=== PATIENT | female | born 1990 ===

== ENCOUNTER 2017-02-07 00:55 | Observation (INO) | payer OTHER ==
[2017-02-07] MEDS ORDERED: Sodium Chloride 0.9% 1,000 ML IV STA ×2 (01:27→05:10)
--- NOTE | 2017-02-07 01:27 | ED PDOC ---
Arrival/HPI - General Chief Complaint: Abdominal Pain Time Seen by Provider: 02/07/17 01:18 Historian: Patient - History of Present Illness Narrative History of Present Illness (Text): 02/07/17 01:24 Tracie Lopez is a 25 year old female, whose past medical history includes calcium deficiency, hypothyroidism, thyroid cancer, vocal cord paralysis, and anxiety, who presents to the emergency room complaining of nausea, diarrhea, and intermittent abdominal cramping for 1 week. Patient had been taking Clindamycin for hidradenitis suppurativa, which she stopped taking due to discomfort. Patient states she is still complaining of abdominal discomfort and was started on Flagyl and probiotics by her PMD. Patient denies any fever, chills, chest pain, shortness of breath, urinary symptoms, back pain, neck pain , headache, dizziness, or any other complaints. PMD: Dr. Wali Caal Time/Duration: Other (1 week) Symptom Onset: Gradual Symptom Course: Intermittent Quality: Cramping Activities at Onset: Rest, Light Context: Home Past Medical History - Provider Review Nursing Documentation Reviewed: Yes - Infectious Disease Hx of Infectious Diseases: None - Cardiac Hx Cardiac Disorders: No - Pulmonary Hx Respiratory Disorders: No - Neurological Hx Neurological Disorder: No - HEENT Hx HEENT Disorder: Yes (vocal cord paralysis) Other/Comment: thyroid nodule - Renal Hx Renal Disorder: No - Endocrine/Metabolic Hx Endocrine Disorders: Yes Hx Hypothyroidism: Yes Other/Comment: Thryroid nodule - Hematological/Oncological Hx Blood Disorders: No - Integumentary Hx Dermatological Disorder: Yes Other/Comment: SMALL CYST IN ARMPIT WITH ANTIBIOTICS - Musculoskeletal/Rheumatological Hx Musculoskeletal Disorders: No Hx Falls: No - Gastrointestinal Hx Gastrointestinal Disorders: No - Genitourinary/Gynecological Hx Genitourinary Disorders: No - Psychiatric Hx Psychophysiologic Disorder: Yes Hx Anxiety: Yes Hx Substance Use: No - Surgical History Hx Thyroidectomy: Yes - Anesthesia Hx Anesthesia: Yes Hx Anesthesia Reactions: No Hx Malignant Hyperthermia: No Family/Social History - Physician Review Nursing Documentation Reviewed: Yes Family/Social History: No Known Family HX Smoking Status: Never Smoked Hx Alcohol Use: No Hx Substance Use: No Allergies/Home Meds Allergies/Adverse Reactions: Allergies No Known Allergies Allergy (Verified 11/06/16 07:38) Home Medications: Home Meds Medication Instructions Recorded Confirmed Levothyroxine [Synthroid] 200 mcg PO DAILY 06/19/15 11/06/16 Ergocalciferol (Vitamin D2) 5,000 units PO .WEEKLY 11/06/16 11/06/16 [Vitamin D] clonazePAM [Klonopin] 0.25 mg PO DAILY 11/06/16 11/06/16 Review of Systems - Physician Review All systems were reviewed & negative as marked: Yes - Review of Systems Constitutional: Normal. absent: Fevers Eyes: Normal ENT: Normal Respiratory: Normal. absent: SOB, Cough Cardiovascular: Normal. absent: Chest Pain Gastrointestinal: Abdominal Pain, Diarrhea, Nausea. absent: Vomiting Genitourinary Female: Normal. absent: Dysuria, Frequency, Hematuria, Urine Output Changes Musculoskeletal: Normal. absent: Back Pain, Neck Pain Skin: Normal. absent: Rash Neurological: Normal. absent: Headache, Dizziness Endocrine: Normal Hemo/Lymphatic: Normal Psychiatric: Normal Physical Exam Vital Signs Reviewed: Yes Vital Signs Temp Pulse Resp BP Pulse Ox 02/07/17 01:11 98.4 F 105 H 20 131/78 99 Temperature: Afebrile Blood Pressure: Normal Pulse: Regular Respiratory Rate: Normal Appearance: Positive for: Well-Appearing, Non-Toxic, Comfortable Pain Distress: None Mental Status: Positive for: Alert and Oriented X 3 - Systems Exam Head: Present: Atraumatic, Normocephalic Pupils: Present: PERRL Extroacular Muscles: Present: EOMI Conjunctiva: Present: Normal Mouth: Present: Moist Mucous Membranes Neck: Present: Normal Range of Motion Respiratory/Chest: Present: Clear to Auscultation, Good Air Exchange. No: Respiratory Distress, Accessory Muscle Use Cardiovascular: Present: Regular Rate and Rhythm, Normal S1, S2. No: Murmurs Abdomen: Present: Normal Bowel Sounds. No: Tenderness, Distention, Peritoneal Signs Back: Present: Normal Inspection Upper Extremity: Present: Normal Inspection. No: Cyanosis, Edema Lower Extremity: Present: Normal Inspection. No: Edema Neurological: Present: GCS=15, CN II-XII Intact, Speech Normal Skin: Present: Warm, Dry, Normal Color. No: Rashes Psychiatric: Present: Alert, Oriented x 3, Normal Insight, Normal Concentration Medical Decision Making ED Course and Treatment: 02/07/17 01:24 Impression: 26 year old female complaining of intermittent abdominal cramping, nausea, and vomiting for 1 week. Plan: -- Labs, lipase -- Urinalysis -- IV fluids -- Zofran -- Toradol -- Reassess and disposition Prior Visits: Notes and results from previous visits were reviewed. On 11/07/2016, pt was seen in the emergency department for abdominal pain. Pt was d/c home. Progress Notes: 02/07/17 04:40 Reviewed radiology, CT Abdomen and Pelvis shows: No acute findings. 02/07/17 05:[address] Caal, who is aware and agrees with plan. Accepts pt in to his service. Pt will go to [facility] for abdominal pain and gastroenteritis. Requests Dr. Llanes on consult. Pt is no acute distress. Discussed and hospital observation plan with pt, who is aware and verbalizes understanding. - Lab Interpretations Lab Results: 02/07/17 01:59 02/07/17 01:59 Lab Results 02/07/17 01:59: WBC 9.1, RBC 5.10, Hgb 12.2, Hct 38.3, MCV 75.1 L, MCH 23.9 L, MCHC 31.9, RDW 16.3 H, Plt Count 446, MPV 10.6, Sodium 142, Potassium 4.6, Chloride 100, Carbon Dioxide 26, Anion Gap 21 H, BUN 14, Creatinine 0.7, Est GFR ( Amer) > 60, Est GFR (Non-Af Amer) > 60, Random Glucose 133 H, Calcium 9.6, Total Bilirubin 0.6, AST 46 H, ALT 75 H, Alkaline Phosphatase 64, Total Protein 9.5 H, Albumin 4.7, Globulin 4.8, Albumin/Globulin Ratio 1.0 L, Lipase 31, Urine Color yellow, Urine Appearance Clear, Urine pH 6.0, Ur Specific [place] >= 1.030, Urine Protein Trace H, Urine Glucose (UA) Negative, Urine Ketones Negative, Urine Blood Trace-intact H, Urine Nitrate Negative, Urine Bilirubin Negative, Urine Urobilinogen 0.2, Ur Leukocyte Esterase Moderate H, Urine RBC 5 - 10, Urine WBC 10 - 15, Ur Epithelial Cells Many, Urine HCG, Qual Negative I have reviewed the lab results: Yes - RAD Interpretation Narrative RAD Interpretations (Text): CT Abdomen and Pelvis shows: The liver is normal. The spleen is normal. The pancreas is normal. No gallstones. No hydronephrosis or perinephric stranding. The bowel appears normal. A normal appendix is identified coronal images 55 through 64. The uterus and ovaries are normal. IMPRESSION: No acute findings. Radiology Orders: 02/07/17 02:06 ABD & PELVIS IV CONTRAST ONLY [CT] Stat Camouflage Specialist: Radiologist - Medication Orders Current Medication Orders: Metronidazole (Flagyl) 100 mls @ 100 mls/hr IVPB STAT STA PRN Reason: Protocol Stop: 02/07/17 06:06 Sodium Chloride (Sodium Chloride 0.9%) 1,000 mls @ 100 mls/hr IV .Q10H STA Stop: 02/07/17 15:09 Ondansetron HCl (Zofran Inj) 4 mg IVP Q6H PRN PRN Reason: Nausea/Vomiting Stop: 02/07/17 12:00 Discontinued Medications Sodium Chloride (Sodium Chloride 0.9%) 1,000 mls @ 999 mls/hr IV .Q1H1M STA Stop: 02/07/17 02:27 Last Admin: 02/07/17 02:09 Dose: 999 MLS/HR eMAR Start Stop Document 02/07/17 02:09 EVA (Rec: 02/07/17 02:09 [place] [id number]) Intravenous Solution Start Date 02/07/17 Start Time 02:09 End Date 02/07/17 End time 03:10 Total Infusion Time 61 Iohexol (Omnipaque 350 100 Ml) Confirm Administered Dose 350 mg .ROUTE .STK-MED ONE Stop: 02/07/17 02:42 Ketorolac Tromethamine (Toradol) 30 mg IVP ONCE ONE Stop: 02/07/17 01:28 Last Admin: 02/07/17 02:09 Dose: 30 MG IVP Administration Document 02/07/17 02:09 EVA (Rec: 02/07/17 02:09 [place] [id number]) Charges for Administration # of IVP Administrations 1 Ondansetron HCl (Zofran Inj) 4 mg IVP ONCE ONE Stop: 02/07/17 01:28 Last Admin: 02/07/17 02:09 Dose: 4 MG IVP Administration Document 02/07/17 02:09 EVA (Rec: 02/07/17 02:09 [place] [id number]) Charges for Administration # of IVP Administrations 1 - Scribe Statement The provider has reviewed the documentation as recorded by the Junior Curiel Provider Attestation: All medical record entries made by the Judiibsherri were at my direction and personally dictated by me. I have reviewed the chart and agree that the record accurately reflects my personal performance of the history, physical exam, medical decision making, and the department course for this patient. I have also personally directed, reviewed, and agree with the discharge instructions and disposition. Disposition/Present on Arrival - Present on Arrival Any Indicators Present on Arrival: No History of DVT/PE: No History of Uncontrolled Diabetes: No Urinary Catheter: No History of Decub. Ulcer: No History Surgical Site Infection Following: None - Disposition Have Diagnosis and Disposition been Completed?: Yes Diagnosis: Abdominal pain, Gastroenteritis, Intractable diarrhea Disposition: HOSPITALIZED Disposition Time: 05:14 Patient Problems: Current Active Problems Problem Status Diagnosed Abdominal pain Acute Gastroenteritis Acute Intractable diarrhea Acute Condition: GOOD
[2017-02-07 02:34] LABS: ALKALINE PHOSPHATASE 64 U/L (38-133); ALT/SGPT 75 U/L (7-56); AST/SGOT 46 U/L (15-39); BILIRUBIN,TOTAL 0.6 mg/dL (0.2-1.3); BLOOD UREA NITROGEN 14 mg/dL (7-21); CALCIUM 9.6 mg/dL (8.4-10.5); CARBON DIOXIDE 26 mmol/L (21-33); CHLORIDE 100 mmol/L (98-107); GFR AFRICAN-AMERICAN > 60; GLUCOSE,RANDOM 133 mg/dL (70-110); LIPASE 31 U/L (23-300); POTASSIUM 4.6 mmol/L (3.6-5.0); SODIUM 142 mmol/L (132-148); TOTAL PROTEIN 9.5 g/dL (5.8-8.3)
[2017-02-07] MEDS ORDERED: Iohexol 350 MG/100 ML VIAL ONE (02:41)
[2017-02-07 02:58] LABS: URINE BILIRUBIN NEGATIVE (NEGATIVE); URINE BLOOD TRACE-INTACT (NEGATIVE); URINE GLUCOSE (UA) NEGATIVE (NEGATIVE); URINE KETONE NEGATIVE (NEGATIVE); URINE LEUKOCYTE ESTERASE MODERATE Leu/uL (NEGATIVE); URINE PROTEIN TRACE mg/dL (<30 mg/dL); URINE UROBILINOGEN 0.2 E.U./dL (<1 E.U./dL)
[2017-02-07 03:02] LABS: HEMATOCRIT 38.3 % (36.0-48.0); MEAN CELL VOLUME 75.1 fL (80.0-105.0); MEAN CORPUSCULAR HEMOGLOBIN 23.9 pg (25.0-35.0); MEAN CORPUSCULAR HGB CONC 31.9 g/dl (31.0-37.0); MEAN PLATELET VOLUME 10.6 fl (7.0-11.0); RED CELL DISTRIBUTION WIDTH 16.3 % (11.5-14.5); WHITE BLOOD COUNT 9.1 10^3/ul (4.5-11.0)
[2017-02-07 03:03] LABS: URINE APPEARANCE CLEAR (CLEAR)
[2017-02-07 03:04] LABS: URINE EPITHELIAL CELLS MANY /hpf (0-5)
--- NOTE | 2017-02-07 04:33 | CT ---
EXAM: CT Abdomen and Pelvis With Intravenous Contrast CLINICAL HISTORY: 26 years old, female; Pain; Abdominal pain; Localized; Lower; Additional info: Abdominal pain with gassiness and nausea TECHNIQUE: Axial computed tomography images of the abdomen and pelvis with intravenous contrast. This CT exam was performed using one or more of the following dose reduction techniques: automated exposure control, adjustment of the mA and/or kV according to patient size, and/or use of iterative reconstruction technique. Coronal and sagittal reformatted images were created and reviewed. CONTRAST: 100 mL of omni 350 administered intravenously. EXAM DATE/TIME: 02/07/2017 2:06 AM COMPARISON: No relevant prior studies available. FINDINGS: The liver is normal. The spleen is normal. The pancreas is normal. No gallstones. No hydronephrosis or perinephric stranding. The bowel appears normal. A normal appendix is identified coronal images 55 through 64. The uterus and ovaries are normal. IMPRESSION: No acute findings.
[2017-02-07] MEDS ORDERED: metroNIDAZOLE IV 500 mg/100 ml 100 ML IVPB STA (05:07)
[2017-02-07 09:10] VITALS: BMI 44.2
[2017-02-07] MEDS: Levothyroxine 175 MCG TAB PO SCH (11:13)
[2017-02-07] MEDS ORDERED: Sodium Chloride 0.45% 1,000 ML IV SCH (23:15)
[2017-02-08 06:45] LABS: BLOOD UREA NITROGEN 7 mg/dL (7-21); CALCIUM 8.3 mg/dL (8.4-10.5); CARBON DIOXIDE 26 mmol/L (21-33); CHLORIDE 103 mmol/L (95-110); GFR AFRICAN-AMERICAN > 60; GLUCOSE,RANDOM 92 mg/dL (70-110); MAGNESIUM 1.7 mg/dL (1.7-2.2); POTASSIUM 3.6 mmol/L (3.6-5.0); SODIUM 140 mmol/L (132-148)
[2017-02-08 07:31] VITALS: RESP 20
--- NOTE | 2017-02-08 08:06 | CON ---
DATE: 02/07/2017 REASON FOR CONSULTATION: Lower abdominal pain. HISTORY OF PRESENT ILLNESS: This 26-year-old patient with a past medical history of , complicat ed postoperative course with laryngeal nerve palsy, which had presently a course of antibiotic clinda mycin for hydradenitis suppurativa. The patient developed lower abdominal discomfort for the past fe w days, worsening of the symptoms. Admitted here for further evaluation. No bleeding per rectum. S ome discomfort with some loose bowel movements. No fever. Other pas medical history as above, histo ry of hypothyroidism secondary to the during the thyroid surgery. REVIEW OF SYSTEMS: Positive as above. Otherwise systems reviewed negative. PHYSICAL EXAMINATION: GENERAL: The patient is lying on the bed, not in acute distress. VITAL SIGNS: Temperature is 98, blood pressure is 125/78, pulse 77, O2 saturation 98%, respirations 18. HEENT: Atraumatic, anicteric. NECK: Supple. Thyroid scar present. HEART: S1, S2 heard. LUNGS: Bilateral air entry present. ABDOMEN: Soft. There is mild tenderness on deep palpation in the lower abdomen in the suprapubic, l eft and right lower quadrant. No rebound or guarding. EXTREMITIES: No edema. LABORATORY DATA: Hemoglobin , hematocrit 38.3, WBCs 9.1, platelets 446. Chemistries: AST is 4 6, ALT is 75. Urinalysis: Leukocyte esterase moderate, WBCs 10-15. IMPRESSION: This 26-year-old patient was admitted with lower abdominal discomfort, history of clinda mycin treatment before. CT scan was reviewed, appeared to have a small amount of fluid in the pelvis . Ovarian cyst rupture also should be considered in the differential diagnosis. Would recommend: 1. Stool for Clostridium difficile. 2. Urine culture. 3. Empirically start the patient on Flagyl 500 mg t.i.d. 4. Transvaginal ultrasound scan. 5. Start the patient on clear liquid diet. Thank you very much for allowing us to participate in the care of the patient. We will continue to c losely follow up her care and suggest further management based on the clinical course. Kovil V Mario Alberto MD cc: [id number] TT: 02/08/2017 08:05:06 Confirmation # [id number] Dictation # [id number] en
[2017-02-08] MEDS: Levothyroxine 175 MCG TAB PO SCH (12:29)
--- NOTE | 2017-02-08 14:29 | PN ---
DATE: 02/08/2017 Seen and examined at the bedside earlier today. She complains of nausea, but feels that it is relate d to not eating. Denies abdominal pain, but more reports it is a soreness. She has not had any diar brendon. She states she never had diarrhea. No acute overnight events were reported. No fever, chills , shortness of breath or chest pain. The patient is more hungry, wants to eat solid food. VITAL SIGNS: Temperature is 98.3, blood pressure is 113/70, pulse 75, respirations 20, 98% on room a ir. LABORATORIES: For today is a BMP: Sodium 140, K 3.6, BUN 7, creatinine 0.6, magnesium is 1.7. PHYSICAL EXAMINATION: HEENT: Sclerae anicteric. NECK: Supple. CARDIAC: S1, S2. LUNG SOUNDS: Clear. ABDOMEN: With bowel sounds. Soft. No tenderness on palpation. No rebound or guarding. EXTREMITIES: No edema. ASSESSMENT: This is a 26-year-old obese female admitted with lower abdominal discomfort with history of clindamycin treatment for hidradenitis suppurativa, rule out any Clostridium difficile colitis, r ule out any ovarian cyst rupture. PLAN: She is awaiting to go for a transvaginal ultrasound. Continue the empiric treatment with Flag yl. Stool for Clostridium difficile was sent, the result is pending. Also, her urine culture was se nt. That was negative and we will advance her diet to, initially it was advanced to a full liquid, b ut now we will advance it to a soft regular diet. Continue gastrointestinal prophylaxis. She is on Pepcid b.i.d. Discussed case with Dr. Caal and nursing staff. The patient was seen and discussed with Dr. Llanes. Diana LINK cc: [id number] TT: 02/08/2017 14:28:56 Confirmation # [id number] Dictation # [id number] en
--- NOTE | 2017-02-08 15:01 | PN ---
DATE: 02/08/2017 This is an addendum to the GI progress report dictated by Diana Armas NP. Discussed with Dr. Caal. The patient is waiting for transvaginal sonogram. The patient has no dona rrhea now. Abdominal discomfort is slightly better, but she is complaining of nausea. Urine culture is negative. Stool for C. diff is not available. Waiting for stool for C. diff, empirically on p.o . Flagyl in view of the history of the patient being on clindamycin before, waiting for transvaginal sonogram, advance the diet. PHYSICAL EXAMINATION: ABDOMEN: Soft. Mild tenderness on deep palpation in the lower abdomen. Otherwise, unremarkable. We will advance the diet. Thank you very much for allowing me to participate in the care of the patient. Lorena Llanes MD cc: [id number] TT: 02/08/2017 15:00:24 Confirmation # [id number] Dictation # [id number] veda
--- NOTE | 2017-02-08 15:02 | US ---
HISTORY: r/o Ruptured cyst COMPARISON: CT abdomen and pelvis from 02/07/2017 TECHNIQUE: Transabdominal and transvaginal pelvic ultrasound was performed. FINDINGS: UTERUS: Measures 6.5 x 3.7 x 4.0 cm. Normal in size and appearance. There is normal myometrial echotexture. No fibroid or other mass lesion seen. ENDOMETRIUM: Measures 5 mm in diameter. Unremarkable. CERVIX: No cervical abnormality identified. RIGHT OVARY: Measures 3.5 x 2.1 x 2.3 cm. No solid mass. Normal flow. LEFT OVARY: Measures 3.7 x 2.1 x 2.3 cm. No solid mass. Normal flow. FREE FLUID: No significant free fluid noted. OTHER FINDINGS: None. IMPRESSION: Normal pelvic ultrasound.
[2017-02-08 16:30] VITALS: BP 99/66; PULSE 79; TEMP 97.8; O2SAT 94
--- NOTE | 2017-02-09 09:59 | DS ---
The patient was seen on 02/08/2017, clinically better. She is tolerating her diet, no vomiting. Abd ominal pain resolved. She has no other complaints. Seen by Dr. Llanes at the same time, as well jama mcarthur. The patient going for transvaginal ultrasound, which came back negative. The patient is stabl e. She wants to go home. She is tolerating diet. She will be discharged home to be followed up in the office. Monitor her liver fun ction test, and will go from there. PHYSICAL EXAMINATION: Temperature 97.8, heart rate 79, blood pressure 116/70, respirations 20, saturation 98%. HEAD AND NECK EXAMINATION: Normal. No JVD, no thyromegaly. CHEST EXAMINATION: Clear, good entry. CARDIAC: First sound, second sound normal. ABDOMEN: Soft, nontender. EXTREMITIES: No edema. NEUROLOGICALLY: Normal. Her electrolytes: Sodium 140, potassium 3.6, chloride 103, bicarb 26, BUN 7, creatinine 0.6, calcium 8.3. IMPRESSION AND PLAN: 1. Abdominal pain, etiology unclear. 2. Abnormal liver functions test. The patient currently getting Flagyl. Will advise the patient to just stop it in a couple of days. Her Clostridium difficile is negative. 3. Obesity. 4. Hypothyroidism. Continue levothyroxine, continue calcium, continue Protonix 40 daily, and follow up in the office. 4. Morbid obesity. Advised to watch her diet, exercise. The patient has been followed up. Will see her in a week. Rah Caal MD cc: [phone] TT: 02/09/2017 09:58:30 jn
--- NOTE | 2017-02-09 10:05 | HP ---
The patient is admitted with abdominal pain, vomiting for the last couple of days, seems it got worse , came to the Emergency Room for evaluation. The patient does have a history of thyroidectomy with _ ___current nerve injury that has been treated and seems to have been doing better since then. She is currently on levothyroxine and calcium. She has no chest pain, no shortness of breath, no fever, no chills. Bowel movement seems okay. She denied any diarrhea, but she did have to use clindamycin for her underarm hidradenitis suppurativa. PAST MEDICAL HISTORY: As in the present illness, thyroidectomy, hypothyroidism, hypocalcemia. ALLERGIES: No known allergies. SOCIAL HISTORY: No smoking, no drinking. FAMILY HISTORY: Mom has diabetes, hypertension, obesity. REVIEW OF SYSTEMS: As in the present illness. PHYSICAL EXAMINATION: VITAL SIGNS: Temperature 97.8, heart rate 90. Blood pressure is 125/78, respirations 18, saturation 98% on room air. HEAD AND NECK: Normal. No JVD, no thyromegaly. CHEST: Clear, good air entry. CARDIAC: First and second sounds are normal. ABDOMEN: Soft, obese, nontender. EXTREMITIES: No edema. NEUROLOGIC: Normal. GENERAL: The patient looks comfortable. No distress. Obese. LABORATORY DATA: Urinalysis shows moderate leukocytes, her white cells 10-15, red blood cells 5-10. test is negative. Sodium 142, potassium 4.6, chloride 100, bicarb 26. BUN 14, creatinine 0.7. Blood sugar 133. AST and ALT are slightly elevated - AST 46, ALT 75. Total protein 9.5. CBC shows white count 9.1, hemoglobin 12.2, hematocrit 38.3. Platelets are 446. A CAT scan of the abdomen and pelvis was negative. IMPRESSION AND PLAN: Abdominal pain, history of vomiting, diarrhea episodes, but not currently. We will keep the patient overnight. IV fluids, Zofran, IV Protonix, GI consult - Dr. Llanes. Repeat labs in the morning. We will send a stool Clostridium difficile. We will put the patient on Flagyl IV, and we will continue followup. Also, we will resume levothyroxine, resume calcium, and follow up . Rah Caal MD cc: [phone] TT: 02/09/2017 10:04:21 jn
== END 2017-02-08 18:36 | disposition home or self-care (01) ==
LOC: ED 00:55 → ERH 05:08 → 5RNO 06:18
PROVIDERS: ADMIT Internal Medicine; ATTEND Internal Medicine
DX: R10.9 Unspecified abdominal pain (principal); E66.01 Morbid (severe) obesity due to excess calories; E89.0 Postprocedural hypothyroidism; F41.9 Anxiety disorder, unspecified; R94.5 Abnormal results of liver function studies; L73.2 Hidradenitis suppurativa; Z68.41 Body mass index [BMI] 40.0-44.9, adult; Z85.850 Personal history of malignant neoplasm of thyroid; Z83.3 Family history of diabetes mellitus; Z82.49 Family history of ischemic heart disease and other diseases of the circulatory system
CPT/HCPCS: 36415; 74177; 76830; 80048; 80053; 81001; 83690; 83735; 84703; 85027; 87086; 87324; 96361; 96374; 96375; 96376; 99284; G0378; J1885; J2405; J7030; J7040; Q9967

== ENCOUNTER 2017-03-16 21:26 | Emergency (ER) | payer OTHER ==
[2017-03-16 21:35] VITALS: BMI 44.0
[2017-03-16 21:39] VITALS: RESP 18
--- NOTE | 2017-03-16 22:27 | ED PDOC ---
Arrival/HPI - General Historian: Patient - History of Present Illness Time/Duration: Other (today) Symptom Onset: Gradual Symptom Course: Worsening Activities at Onset: Rest, Light Context: Home <Jessie Yousif - Last Filed: 03/17/17 11:35> <AmritaAngelo - Last Filed: 03/17/17 19:36> - General Chief Complaint: Anxiety Time Seen by Provider: 03/16/17 22:00 - History of Present Illness Narrative History of Present Illness (Text): 03/16/17 22:26 26 year old female, whose past medical history includes calcium deficiency, hypothyroidism, thyroid cancer, vocal cord paralysis, migraines, and anxiety, who presents to the emergency room complaining of muscle tightness. Patient states she has been experiencing diffuse muscle tightness, more so in her right hand, that has been gradually worsening today. Patient states she is having difficulty opening her right hand secondary to muscle tightness. Patient also reports tingling sensation to her face and neck. Patient states she has experienced similar symptoms in the past, but not as severe. Patient states she took a calcium supplement at home due to her history of calcium deficiency in the past, but denies any significant relief. Patient states she is supposed to be taking calcium supplementation daily but does not always take it and is now concerned that her calcium is low and is the cause of her symptoms. Patient denies any weakness, focal neurological deficits, vision changes, dizziness, or speech changes. Patient reports she has also been feeling anxious with some shortness of breath earlier today but states shortness of breath has resolved. Patient denies any chest pain, fever, chills, nausea, vomiting, diarrhea, urinary symptoms, or any other complaints. PMD: Dr. Wali Caal (Jessie Yousif) Past Medical History - Provider Review Nursing Documentation Reviewed: Yes - Travel History Have you recently traveled outside [place] w/in the past 3 mons?: No - Infectious Disease Hx of Infectious Diseases: None - Tetanus Immunization Tetanus Immunization: Unknown - Cardiac Hx Cardiac Disorders: No Hx Angina: No Hx Cardiac Arrhythmia: No Hx Circulatory Problems: No Hx Congestive Heart Failure: No Hx Heart Murmur: No Hx Heart Transplant: No Hx Hypertension: No Hx Internal Defibrillator: No Hx Mitral Valve Prolapse: No Hx Pacemaker: No Hx Peripheral Edema: No Hx Peripheral Vascular Disease: No - Pulmonary Hx Respiratory Disorders: No Hx Asthma: No Hx Bronchitis: No Hx Chronic Obstructive Pulmonary Disease (COPD): No Hx Emphysema: No Hx Pneumonia: No Hx Respiratory Aspiration: No Hx Respiratory Tract Infection: No Hx Sleep Apnea: No Hx Tuberculosis: No - Neurological Hx Neurological Disorder: No Other/Comment: "headaches from time to time" - HEENT Hx HEENT Disorder: No Hx Blind: No Hx Cataracts: No Hx Deafness: No Hx Difficulty Chewing: No Hx Epistaxis: No Hx Glaucoma: No Hx Macular Degeneration: No - Renal Hx Renal Disorder: No Hx Dialysis: No Hx Kidney Stones: No Hx Neurogenic Bladder: No Hx Pyelonephritis: No Hx Renal Cancer: No Hx Renal Failure: No - Endocrine/Metabolic Hx Endocrine Disorders: Yes Hx Hyperthyroidism: Yes Hx Hypothyroidism: Yes - Hematological/Oncological Hx Cancer: Yes (Thyroid cancer) Other/Comment: low calcium - Integumentary Hx Dermatological Disorder: Yes Other/Comment: "hydrytis supertiva" - Musculoskeletal/Rheumatological Hx Musculoskeletal Disorders: No Hx Arthritis: No Hx Back Pain: No Hx Degenerative Joint Disease: No Hx Falls: No Hx Fractures: No Hx Gout: No Hx Herniated Disk: No Hx Myasthenia Gravis: No Hx Osteoarthritis: No Hx Osteomyelitis: No Hx Osteoporosis: No Hx Rhabdomyolysis: No Hx Spinal Stenosis: No Hx Unsteady Gait: No - Gastrointestinal Hx Gastrointestinal Disorders: Yes Hx Colostomy: No Hx Crohn's Disease: No Hx Diverticulitis: Yes Hx Gall Bladder Disease: No Hx Gastroesophageal Reflux: No Hx Gastrointestinal Ulcer: No Hx Ileostomy: No Hx Liver Failure: No Hx Pancreatitis: No HX Swallowing Problems: No - Genitourinary/Gynecological Hx Genitourinary Disorders: No Hx Hematuria: No Hx Incontinence: No Hx Prostate Problems: No Hx Sexually Transmitted Diseases: No Hx Urinary Tract Infection: No - Psychiatric Hx Anxiety: Yes Hx Bipolar Disorder: No Hx Depression: Yes Hx Emotional Abuse: No Hx Hallucinations: No Hx Panic Disorder: Yes Hx Post Traumatic Stress Disorder: No Hx Psychosis: No Hx Physical Abuse: No Hx Schizophrenia: No Hx Sexual Abuse: No Hx Substance Use: No - Surgical History Hx Amputation: No Hx Appendectomy: No Hx Cardiac Catheterization: No Hx Cholecystectomy: No Hx Coronary Stent: No Hx Gastric Bypass Surgery: No Hx Hysterectomy: No Hx Joint Replacement: No Hx Kidney Transplant: No Hx Liver Transplant: No Hx Mastectomy: No Hx Musculoskeletal Surgery: No Hx Open Heart Surgery: No Hx Orthopedic Surgery: No Hx Splenectomy: No Hx Valve Replacement: No Other/Comment: thyroidectomy ;. vocal cord correction/midialization - Anesthesia Hx Anesthesia: Yes Hx Anesthesia Reactions: No Hx Malignant Hyperthermia: No <Jesise Yousif - Last Filed: 03/17/17 11:35> Family/Social History - Physician Review Nursing Documentation Reviewed: Yes Family/Social History: No Known Family HX Smoking Status: Never Smoked Hx Alcohol Use: No Hx Substance Use: No <Jessie Yousif - Last Filed: 03/17/17 11:35> Allergies/Home Meds <Jessie Yousif - Last Filed: 03/17/17 11:35> <Angelo Crowe - Last Filed: 03/17/17 19:36> Allergies/Adverse Reactions: Allergies No Known Allergies Allergy (Verified 02/07/17 09:26) Home Medications: Home Meds Medication Instructions Recorded Confirmed Levothyroxine [Synthroid] 175 mcg PO DAILY 06/19/15 02/07/17 Ergocalciferol (Vitamin D2) 5,000 units PO .WEEKLY 11/06/16 02/07/17 [Vitamin D] clonazePAM [Klonopin] 0.25 mg PO DAILY 11/06/16 02/07/17 Review of Systems - Physician Review All systems were reviewed & negative as marked: Yes - Review of Systems Constitutional: Normal. absent: Fevers Eyes: Normal. absent: Vision Changes ENT: Normal Respiratory: SOB. absent: Cough Cardiovascular: Normal. absent: Chest Pain Gastrointestinal: Normal. absent: Abdominal Pain, Diarrhea, Nausea, Vomiting Genitourinary Female: Normal. absent: Dysuria, Frequency, Hematuria, Urine Output Changes Musculoskeletal: Myalgias, Other (+muscle tightness) Skin: Normal. absent: Rash Neurological: Other. absent: Dizziness, Focal Weakness, Speech Changes Endocrine: Normal Hemo/Lymphatic: Normal Psychiatric: Anxiety <Jessie Yousif - Last Filed: 03/17/17 11:35> Physical Exam Vital Signs Reviewed: Yes Temperature: Afebrile Blood Pressure: Normal Pulse: Regular Respiratory Rate: Normal Appearance: Positive for: Well-Appearing, Non-Toxic, Comfortable Pain Distress: None Mental Status: Positive for: Alert and Oriented X 3, other (anxious) - Systems Exam Head: Present: Atraumatic, Normocephalic Pupils: Present: PERRL Extroacular Muscles: Present: EOMI Conjunctiva: Present: Normal Ears: Present: Normal, NORMAL TM, Normal Canal. No: Erythema Mouth: Present: Moist Mucous Membranes Pharnyx: Present: Normal. No: ERYTHEMA, EXUDATE, TONSILS ENLARGED, Peritonsilar Swelling, Uvular Deviation, Muffled/Hoarse Voice, Strider, Soft Palate/Uvular Edema Nose (External): Present: Atraumatic Nose (Internal): Present: Normal Inspection Neck: Present: Normal Range of Motion. No: Meningeal Signs, MIDLINE TENDERNESS , Paraspinal Tenderness Respiratory/Chest: Present: Clear to Auscultation, Good Air Exchange. No: Respiratory Distress, Accessory Muscle Use Cardiovascular: Present: Regular Rate and Rhythm, Normal S1, S2. No: Murmurs Abdomen: Present: Normal Bowel Sounds. No: Tenderness, Distention, Peritoneal Signs Back: Present: Normal Inspection Upper Extremity: Present: Normal ROM, NORMAL PULSES, Neurovascularly Intact, Capillary Refill < 2s, Other (Contraction right hand, no weakness). No: Cyanosis, Edema, Tenderness, Swelling, Erythema, Temperature Abnormalties, Deformity Lower Extremity: Present: Normal Inspection. No: Edema Neurological: Present: GCS=15, Speech Normal, Motor Func Grossly Intact, Normal Sensory Function, Normal Cerebellar Funct, Gait Normal, Memory Normal Skin: Present: Warm, Dry, Normal Color. No: Rashes Psychiatric: Present: Alert, Oriented x 3, Anxious <Jessie Yousif - Last Filed: 03/17/17 11:35> Medical Decision Making - Lab Interpretations I have reviewed the lab results: Yes - EKG Interpretation Interpreted by ED Physician: Yes Type: 12 lead EKG <Jessie Yousif - Last Filed: 03/17/17 11:35> <Angelo Crowe - Last Filed: 03/17/17 19:36> ED Course and Treatment: 03/16/17 22:26 Impression: 26 year old female complaining of feeling like muscles are tight, greater in right hand and anxiety. hx of thyroid cancer and hypocalcemia in the past. non compliant with calcium supplementation. due to symptoms and patients history we will check electrolytes specifically calcium and magnesium although patient does seem very anxious and has not been taking her anxiety medications in an attempt to control her symptoms on her own. Plan: -- EKG: NSR at 72b/m with sinus arrhythmia no st elevations, normal axis -- Chest X-ray -- CBC, CMP, Magnesium -- Urinalysis -- IV fluids -- Reassess and disposition Prior Visits: Notes and results from previous visits were reviewed. Progress Notes: pt was given non rebreather mask WITHOUT o2 for hyperventilation. klonopin given po. benadryl given po. EKG: NSR at 72b/m with sinus arrhythmia no st elevations, normal axis cxr wnl cbc; hgb;11.0 cmp; K; 3.5 calcium; 8.2 magnesium; 1.6 trop; wnl cpk; 226 UA; contaminated; will sent urine culture pt reassessment; discussed all results in depth with patient; all of patients symptoms have resolved. pt has now verbalized increased stressors and worsening anxiety. pt states she was just advised by her doctor to increase her klonopin. pt denies suicidal or homicidal ideation. stressed the importance of taking medications as prescribed especially calcium supplementation. I advised immediate return if symptoms worsen, persist or if new symptoms develop. impression; anxiety Take medication as prescribed by your doctor increase fluids follow up with the primary care physician within the next 2 days return immediately if symptoms worsen,persist or if new symptoms develop. (Jessie Yousif) - Lab Interpretations Lab Results: 03/16/17 22:45 03/16/17 22:45 Lab Results 03/16/17 22:45: Urine Color Yellow, Urine Appearance Clear, Urine pH 6.0, Ur Specific [place] 1.025, Urine Protein Trace H, Urine Glucose (UA) Negative, Urine Ketones Negative, Urine Blood Negative, Urine Nitrate Negative, Urine Bilirubin Negative, Urine Urobilinogen 0.2, Ur Leukocyte Esterase Small H, Urine RBC 0 - 2, Urine WBC 2 - 5, Ur Epithelial Cells 3 - 4, Urine Bacteria Few 03/16/17 22:45: WBC 11.2 H D, RBC 4.48, Hgb 11.0 L, Hct 33.8 L, MCV 75.4 L, MCH 24.6 L, MCHC 32.5, RDW 15.6 H, Plt Count 468 H, MPV 9.6, Gran % 77.5 H, Lymph % (Auto) 18.8 L, Donley % (Auto) 3.1, Eos % (Auto) 0.4 L, Baso % (Auto) 0.2, Gran # 8.63 H, Lymph # 2.1, Donley # 0.4, Eos # 0.1, Baso # 0.02 03/16/17 22:45: Sodium 139, Potassium 3.5 L, Chloride 100, Carbon Dioxide 27, Anion Gap 16, BUN 12, Creatinine 0.6, Est GFR ( Amer) > 60, Est GFR (Non- Af Amer) > 60, Random Glucose 124 H, Calcium 8.2 L, Magnesium 1.6 L, Total Bilirubin 0.6, AST 38, ALT 49, Alkaline Phosphatase 64, Lactate Dehydrogenase 423, Total Creatine Kinase 226, Troponin I < 0.01, Total Protein 8.5 H, Albumin 4.4, Globulin 4.1, Albumin/Globulin Ratio 1.1 - RAD Interpretation Radiology Orders: 03/16/17 22:28 CHEST PORTABLE [RAD] Stat - Medication Orders Current Medication Orders: Discontinued Medications Clonazepam (Klonopin) Confirm Administered Dose 0.5 mg .ROUTE .STK-MED ONE Stop: 03/17/17 00:25 Last Admin: 03/17/17 00:30 Dose: 0.5 mg Diphenhydramine HCl (Benadryl) 25 mg PO ONCE ONE Stop: 03/17/17 00:03 Last Admin: 03/17/17 00:30 Dose: 25 mg Diphenhydramine HCl (Benadryl) Confirm Administered Dose 25 mg .ROUTE .STK-MED ONE Stop: 03/17/17 00:25 Last Admin: 03/17/17 02:44 Dose: Sodium Chloride (Sodium Chloride 0.9%) 1,000 mls @ 999 mls/hr IV .Q1H1M STA Stop: 03/16/17 23:28 Last Admin: 03/16/17 22:48 Dose: 999 mls/hr - Scribe Statement The provider has reviewed the documentation as recorded by the Scribe <Jessie Yousif - Last Filed: 03/17/17 11:35> - PA / AGILE BUSINESS ANALYST / Resident Statement /DO has reviewed & agrees with the documentation as recorded. <Angelo Crowe - Last Filed: 05/17/17 19:36> - Scribe Statement Allison Curiel All medical record entries made by the Scribe were at my direction and personally dictated by me. I have reviewed the chart and agree that the record accurately reflects my personal performance of the history, physical exam, medical decision making, and the department course for this patient. I have also personally directed, reviewed, and agree with the discharge instructions and disposition. (Jessie Yousif) Disposition/Present on Arrival - Present on Arrival Any Indicators Present on Arrival: No History of DVT/PE: No History of Uncontrolled Diabetes: No Urinary Catheter: No History of Decub. Ulcer: No History Surgical Site Infection Following: None - Disposition Have Diagnosis and Disposition been Completed?: Yes Disposition Time: 01:40 Patient Plan: Discharge <Jessie Yousif - Last Filed: 03/17/17 11:35> <Angelo Crowe - Last Filed: 03/17/17 19:36> - Disposition Diagnosis: Anxiety Disposition: HOME/ ROUTINE Condition: GOOD Additional Instructions: Take medication as prescribed by your doctor increase fluids follow up with the primary care physician within the next 2 days return immediately if symptoms worsen,persist or if new symptoms develop. Referrals: Rah Caal MD [Primary Care Provider] - Follow up with primary
[2017-03-16] MEDS ORDERED: Sodium Chloride 0.9% 1,000 ML IV STA (22:28)
[2017-03-16 22:51] LABS: ADD MANUAL DIFF? NO
[2017-03-16 23:05] LABS: URINE BILIRUBIN NEGATIVE (NEGATIVE); URINE BLOOD NEGATIVE (NEGATIVE); URINE GLUCOSE (UA) NEGATIVE (NEGATIVE); URINE KETONE NEGATIVE (NEGATIVE); URINE LEUKOCYTE ESTERASE SMALL Leu/uL (NEGATIVE); URINE PROTEIN TRACE mg/dL (<30 mg/dL); URINE UROBILINOGEN 0.2 E.U./dL (<1 E.U./dL)
[2017-03-16 23:08] LABS: URINE APPEARANCE CLEAR (CLEAR); URINE COLOR YELLOW (YELLOW)
[2017-03-16 23:29] LABS: URINE RBC 0 - 2 /hpf (0-2)
[2017-03-16 23:30] LABS: URINE BACTERIA FEW (NEG)
[2017-03-16 23:49] LABS: ALB/GLOB RATIO 1.1 (1.1-1.8); ALKALINE PHOSPHATASE 64 U/L (38-133); ALT/SGPT 49 U/L (7-56); AST/SGOT 38 U/L (15-39); BILIRUBIN,TOTAL 0.6 mg/dL (0.2-1.3); BLOOD UREA NITROGEN 12 mg/dL (7-21); CALCIUM 8.2 mg/dL (8.4-10.5); CARBON DIOXIDE 27 mmol/L (21-33); CHLORIDE 100 mmol/L (98-107); GFR AFRICAN-AMERICAN > 60; GLUCOSE,RANDOM 124 mg/dL (70-110); MAGNESIUM 1.6 mg/dL (1.7-2.2); POTASSIUM 3.5 mmol/L (3.6-5.0); SODIUM 139 mmol/L (132-148); TOTAL PROTEIN 8.5 g/dL (5.8-8.3)
[2017-03-17 00:04] LABS: TROPONIN I < 0.01 ng/mL
[2017-03-17 04:17] LABS: HEMATOCRIT 33.8 % (36.0-48.0); MEAN CELL VOLUME 75.4 fL (80.0-105.0); WHITE BLOOD COUNT 11.2 10^3/ul (4.5-11.0)
[2017-03-17 04:18] LABS: BASO % 0.2 % (0.0-3.0); EOS % 0.4 % (1.5-5.0); GRAN % 77.5 % (50.0-68.0); LYMPH % 18.8 % (22.0-35.0); MEAN CORPUSCULAR HEMOGLOBIN 24.6 pg (25.0-35.0); MEAN CORPUSCULAR HGB CONC 32.5 g/dl (31.0-37.0); MEAN PLATELET VOLUME 9.6 fl (7.0-11.0); MONO % 3.1 % (1.0-6.0); PLATELET COUNT 468 10^3/uL (120.0-450.0); RED CELL DISTRIBUTION WIDTH 15.6 % (11.5-14.5)
[2017-03-17 04:19] LABS: BASO # 0.02 K/mm3 (0.0-2.0); EOS # 0.1 (0.0-0.7); GRAN # 8.63 (1.4-6.5); LYMPH # 2.1 (1.2-3.4); MONO # 0.4 (0.1-0.6)
[2017-03-17 04:37] VITALS: BP 133/88; PULSE 75; TEMP 98.5; O2SAT 99
--- NOTE | 2017-03-17 07:13 | RAD ---
HISTORY: anxiety COMPARISON: FINDINGS: LUNGS: No active pulmonary disease. PLEURA: No significant pleural effusion identified, no pneumothorax apparent. CARDIOVASCULAR: Normal. OSSEOUS STRUCTURES: No significant abnormalities. VISUALIZED UPPER ABDOMEN: Normal. OTHER FINDINGS: None. IMPRESSION: No active disease.
--- NOTE | 2017-03-17 16:28 | CARD ---
APPROVED REPORT EKG Measurement Heart [id number] <Conclusion> Normal sinus rhythm with sinus arrhythmia Normal ECG
== END 2017-03-17 01:50 | disposition home or self-care (01) ==
LOC: ED 21:26
DX: F41.9 Anxiety disorder, unspecified (principal)
CPT/HCPCS: 71010; 80053; 81001; 82550; 83615; 83735; 84484; 85025; 93005; 99283; J7040

== ENCOUNTER 2017-04-05 14:16 | Emergency (ER) | payer OTHER ==
[2017-04-05 14:17] VITALS: BMI 44.0
[2017-04-05 15:21] VITALS: TEMP 98.9
--- NOTE | 2017-04-05 16:02 | ED PDOC ---
Arrival/HPI - General Chief Complaint: ENT Problem Time Seen by Provider: 04/05/17 15:12 Historian: Patient, Parent - History of Present Illness Narrative History of Present Illness (Text): 04/05/17 15:59 This 26 yo female with pmh thyroid Ca. s/p thyroid surgery, with right partial vocal cord paralysis, on Synthroid, presents to this ED c/o left sided neck mass like sensation since January 2017. Patient stated that sometimes she had difficulty swallowing due to sensation of left Neck mass. Denies fever, sob, cp , cough, dysphagia, sore throat, rash, SI, HI, hallucination, or abnormal gait. Patient was evaluated by DR. Caal, who gave patient a prescription for out- patient CT neck w/ contrast. Patient is requesting Psychiatrist Referral Time/Duration: Other (see HPI) Context: Home Past Medical History - Provider Review Nursing Documentation Reviewed: Yes - Infectious Disease Hx of Infectious Diseases: None - Tetanus Immunization Tetanus Immunization: Unknown - Cardiac Hx Cardiac Disorders: No Hx Angina: No Hx Cardiac Arrhythmia: No Hx Circulatory Problems: No Hx Congestive Heart Failure: No Hx Heart Murmur: No Hx Heart Transplant: No Hx Hypertension: No Hx Internal Defibrillator: No Hx Mitral Valve Prolapse: No Hx Pacemaker: No Hx Peripheral Edema: No Hx Peripheral Vascular Disease: No - Pulmonary Hx Respiratory Disorders: No Hx Asthma: No Hx Bronchitis: No Hx Chronic Obstructive Pulmonary Disease (COPD): No Hx Emphysema: No Hx Pneumonia: No Hx Respiratory Aspiration: No Hx Respiratory Tract Infection: No Hx Sleep Apnea: No Hx Tuberculosis: No - Neurological Hx Neurological Disorder: No Other/Comment: "headaches from time to time" - HEENT Hx HEENT Disorder: No Hx Blind: No Hx Cataracts: No Hx Deafness: No Hx Difficulty Chewing: No Hx Epistaxis: No Hx Glaucoma: No Hx Macular Degeneration: No - Renal Hx Renal Disorder: No Hx Dialysis: No Hx Kidney Stones: No Hx Neurogenic Bladder: No Hx Pyelonephritis: No Hx Renal Cancer: No Hx Renal Failure: No - Endocrine/Metabolic Hx Endocrine Disorders: Yes Hx Hyperthyroidism: Yes Hx Hypothyroidism: Yes - Hematological/Oncological Hx Cancer: Yes (Thyroid cancer) Other/Comment: low calcium - Integumentary Hx Dermatological Disorder: Yes Other/Comment: "hydrytis supertiva" - Musculoskeletal/Rheumatological Hx Musculoskeletal Disorders: No Hx Arthritis: No Hx Back Pain: No Hx Degenerative Joint Disease: No Hx Falls: No Hx Fractures: No Hx Gout: No Hx Herniated Disk: No Hx Myasthenia Gravis: No Hx Osteoarthritis: No Hx Osteomyelitis: No Hx Osteoporosis: No Hx Rhabdomyolysis: No Hx Spinal Stenosis: No Hx Unsteady Gait: No - Gastrointestinal Hx Gastrointestinal Disorders: Yes Hx Colostomy: No Hx Crohn's Disease: No Hx Diverticulitis: Yes Hx Gall Bladder Disease: No Hx Gastroesophageal Reflux: No Hx Gastrointestinal Ulcer: No Hx Ileostomy: No Hx Liver Failure: No Hx Pancreatitis: No HX Swallowing Problems: No - Genitourinary/Gynecological Hx Genitourinary Disorders: No Hx Hematuria: No Hx Incontinence: No Hx Prostate Problems: No Hx Sexually Transmitted Diseases: No Hx Urinary Tract Infection: No - Psychiatric Hx Anxiety: Yes Hx Bipolar Disorder: No Hx Depression: Yes Hx Emotional Abuse: No Hx Hallucinations: No Hx Panic Disorder: Yes Hx Post Traumatic Stress Disorder: No Hx Psychosis: No Hx Physical Abuse: No Hx Schizophrenia: No Hx Sexual Abuse: No Hx Substance Use: No - Surgical History Hx Amputation: No Hx Appendectomy: No Hx Cardiac Catheterization: No Hx Cholecystectomy: No Hx Coronary Stent: No Hx Gastric Bypass Surgery: No Hx Hysterectomy: No Hx Joint Replacement: No Hx Kidney Transplant: No Hx Liver Transplant: No Hx Mastectomy: No Hx Musculoskeletal Surgery: No Hx Open Heart Surgery: No Hx Orthopedic Surgery: No Hx Splenectomy: No Hx Valve Replacement: No Other/Comment: thyroidectomy ;. vocal cord correction/midialization - Anesthesia Hx Anesthesia: Yes Hx Anesthesia Reactions: No Hx Malignant Hyperthermia: No Family/Social History - Physician Review Nursing Documentation Reviewed: Yes Family/Social History: No Known Family HX Smoking Status: Never Smoked Hx Alcohol Use: No Hx Substance Use: No Allergies/Home Meds Allergies/Adverse Reactions: Allergies No Known Allergies Allergy (Verified 04/05/17 15:28) Home Medications: Home Meds Medication Instructions Recorded Confirmed Levothyroxine [Synthroid] 175 mcg PO DAILY 06/19/15 04/05/17 Ergocalciferol (Vitamin D2) 5,000 units PO .WEEKLY 11/06/16 04/05/17 [Vitamin D] clonazePAM [Klonopin] 0.25 mg PO DAILY 11/06/16 04/05/17 Review of Systems - Review of Systems Constitutional: Normal. absent: Fatigue, Weight Change, Fevers Eyes: Normal ENT: Other (sensation of FB left sided neck) Respiratory: Normal Cardiovascular: Normal Gastrointestinal: Normal Genitourinary Female: Normal Musculoskeletal: Normal Skin: Normal Neurological: Normal Endocrine: Normal Hemo/Lymphatic: Normal Psychiatric: Normal Physical Exam Vital Signs Temp Pulse Resp BP Pulse Ox 04/05/17 20:14 73 16 116/73 98 04/05/17 19:24 65 16 113/64 99 04/05/17 17:30 70 18 119/71 99 04/05/17 15:20 98.9 F 76 18 114/78 96 Temperature: Afebrile Blood Pressure: Normal Pulse: Regular Respiratory Rate: Normal Appearance: Positive for: Well-Appearing, Non-Toxic, Comfortable Pain Distress: None Mental Status: Positive for: Alert and Oriented X 3 - Systems Exam Head: Present: Atraumatic, Normocephalic Pupils: Present: PERRL Extroacular Muscles: Present: EOMI Conjunctiva: Present: Normal Mouth: Present: Moist Mucous Membranes Pharnyx: Present: Normal. No: ERYTHEMA, EXUDATE, TONSILS ENLARGED, Peritonsilar Swelling, Uvular Deviation, Muffled/Hoarse Voice, Strider Nose (External): Present: Atraumatic Nose (Internal): Present: Normal Inspection Neck: Present: Normal Range of Motion, Trachea Midline, Other (No neck mass palpated). No: Meningeal Signs, MIDLINE TENDERNESS, Paraspinal Tenderness, Lymphadenopathy Respiratory/Chest: Present: Clear to Auscultation, Good Air Exchange. No: Respiratory Distress, Accessory Muscle Use, Wheezes, Decreased Breath Sounds, Rales, Retracting, Rhonchi Cardiovascular: Present: Regular Rate and Rhythm, Normal S1, S2. No: Murmurs Upper Extremity: Present: Normal Inspection, Normal ROM, NORMAL PULSES, Capillary Refill < 2s Lower Extremity: Present: Normal Inspection, NORMAL PULSES, Normal ROM, Neurovascularly Intact, Capillary Refill < 2 s. No: Edema, CALF TENDERNESS Neurological: Present: GCS=15, CN II-XII Intact, Speech Normal, Motor Func Grossly Intact, Normal Sensory Function, Normal Cerebellar Funct, Gait Normal, Memory Normal Skin: Present: Warm, Dry, Normal Color. No: Rashes Psychiatric: Present: Alert, Oriented x 3 Medical Decision Making ED Course and Treatment: 04/05/17 19:17 Re-evaluation. Patient feels better. Discussed results and plan with patient who expresses understanding. All questions answered and there is agreement with the plan to discharge home with instructions. Patient stable for discharge. Return if symptoms persist or worsen. Patient stated she has her menstruation right now, which accounts for hematuria found on UA Patient is requesting Psychiatrist referral due to her H anxiety, and panic attack Re-evaluation Time: 19:18 Reassessment Condition: Re-examined, Improved - Lab Interpretations Microbiology Results: Microbiology Results 04/05/17 20:06 Urine,Clean Catch Urine Culture - Final 50-100,000 CFU/ML. MULTIPLE SPECIES. SUGGEST REPEAT SPECIMEM. Lab Results: 04/05/17 16:30 04/05/17 16:30 Lab Results 04/05/17 20:06: Urine HCG, Qual Negative 04/05/17 18:00: Urine Color Yellow, Urine Appearance Sl cloudy, Urine pH 7.0, Ur Specific [place] 1.025, Urine Protein 100 H, Urine Glucose (UA) Negative, Urine Ketones Negative, Urine Blood Large H, Urine Nitrate Negative, Urine Bilirubin Negative, Urine Urobilinogen 0.2, Ur Leukocyte Esterase Small H, Urine RBC 15 - 20, Urine WBC 5 - 10, Ur Epithelial Cells 10 - 12, Urine Bacteria Few 04/05/17 16:30: Sodium 142, Potassium 3.7, Chloride 104, Carbon Dioxide 27, Anion Gap 15, BUN 11, Creatinine 0.6, Est GFR ( Amer) > 60, Est GFR (Non- Af Amer) > 60, Random Glucose 93, Calcium 8.1 L, Total Bilirubin 0.4, AST 25, ALT 37, Alkaline Phosphatase 57, Total Protein 7.9, Albumin 4.2, Globulin 3.8, Albumin/Globulin Ratio 1.1 04/05/17 16:30: WBC 7.8 D, RBC 4.46, Hgb 10.5 L, Hct 33.5 L, MCV 75.1 L, MCH 23.5 L, MCHC 31.3, RDW 15.3 H, Plt Count 402, MPV 9.6, Gran % 72.7 H, Lymph % ( Auto) 22.6, [place] % (Auto) 3.5, Eos % (Auto) 0.9 L, Baso % (Auto) 0.3, Gran # 5.66, Lymph # 1.8, [place] # 0.3, Eos # 0.1, Baso # 0.02 - RAD Interpretation Narrative RAD Interpretations (Text): 04/05/17 19:13 Accession No. : [id number] Patient Name / ID : HUMBERTO NEWBERRY / [id number] Exam Date : 04/05/2017 18:09:00 ( Approved ) Study Comment : Sex / Age : F / 26Y Creator : Darius Pyle MD Dictator : Darius Pyle MD Infantryman : Index Clerk : Darius Pyle MD Approver2 : Report Date : 04/05/2017 18:58:49 My Comment : PROCEDURE: CT NECK WITH CONTRAST HISTORY: left sided mass sensation Relevant surgical history: Thyroid surgery for thyroid cancer and subsequent right vocal cord paralysis. COMPARISON: 10/10/2015. TECHNIQUE: CT of the neck with intravenous contrast. Coronal and sagittal reformats generated. Intravenous contrast dose: 95 cc Omnipaque 300 Radiation dose: DLP 425.58 mGy-cm This CT exam was performed using one or more of the following dose reduction techniques: Automated exposure control, adjustment of the mA and/or kV according to patient size, and/or use of iterative reconstruction technique. FINDINGS: NASOPHARYNX: Unremarkable. SUPRAHYOID NECK: Mild tonsillar hypertrophy without focal abnormality. INFRAHYOID NECK: Unremarkable vallecular and piriform sinuses. Laryngeal asymmetry on the right consistent with known clinical presentation. MASS: None. GLANDS: Parotid and submandibular glands unremarkable. Normal size thyroid gland, without nodule. LYMPH NODES: Small submandibular lymph nodes on the right are stable. CERVICAL SPINE: No fracture or focal lesion. VASCULAR STRUCTURES: Unremarkable. OTHER FINDINGS: No Known normal thyroid tissue identified suggesting total thyroidectomy. IMPRESSION: No acute findings related to/accounting for the clinical presentation. No significant interval change compared to the prior examination(s). Additional benign and/or incidental findings described above. Radiology Orders: 04/05/17 15:58 NECK SOFT TISSUE W/CONTRAST [CT] Stat - Medication Orders Current Medication Orders: Discontinued Medications Iohexol (Omnipaque 350 100 Ml) Confirm Administered Dose 350 mg .ROUTE .STK-MED ONE Stop: 04/05/17 17:59 Disposition/Present on Arrival - Present on Arrival Any Indicators Present on Arrival: No History of DVT/PE: No History of Uncontrolled Diabetes: No Urinary Catheter: No History of Decub. Ulcer: No History Surgical Site Infection Following: None - Disposition Have Diagnosis and Disposition been Completed?: Yes Diagnosis: Throat discomfort, Hypocalcemia Disposition: HOME/ ROUTINE Disposition Time: 19:18 Patient Plan: Discharge Condition: GOOD Additional Instructions: Call private doctor for follow up visit in 1-2 days. Call private ENT for revaluation. I have added the phone number of [facility] as you request. Return to emergency if symptoms worsen. Referrals: Rah Caal MD [Primary Care Provider] - Follow up with primary [employer] [facility] [Outside] - Follow up with primary [facility] [Outside] - Follow up with primary Franky Houser DO [Doctor [facility]] - Follow up with primary
[2017-04-05 16:50] LABS: ADD MANUAL DIFF? NO
[2017-04-05 17:01] LABS: BASO # 0.02 K/mm3 (0.0-2.0); BASO % 0.3 % (0.0-3.0); EOS # 0.1 (0.0-0.7); EOS % 0.9 % (1.5-5.0); GRAN # 5.66 (1.4-6.5); GRAN % 72.7 % (50.0-68.0); HEMATOCRIT 33.5 % (36.0-48.0); LYMPH # 1.8 (1.2-3.4); LYMPH % 22.6 % (22.0-35.0); MEAN CELL VOLUME 75.1 fL (80.0-105.0); MEAN CORPUSCULAR HEMOGLOBIN 23.5 pg (25.0-35.0); MEAN CORPUSCULAR HGB CONC 31.3 g/dl (31.0-37.0); MEAN PLATELET VOLUME 9.6 fl (7.0-11.0); MONO # 0.3 (0.1-0.6); MONO % 3.5 % (1.0-6.0); PLATELET COUNT 402 10^3/uL (120.0-450.0); RED CELL DISTRIBUTION WIDTH 15.3 % (11.5-14.5); WHITE BLOOD COUNT 7.8 10^3/ul (4.5-11.0)
[2017-04-05 17:03] LABS: ALB/GLOB RATIO 1.1 (1.1-1.8); ALKALINE PHOSPHATASE 57 U/L (38-133); ALT/SGPT 37 U/L (7-56); AST/SGOT 25 U/L (15-39); BILIRUBIN,TOTAL 0.4 mg/dL (0.2-1.3); BLOOD UREA NITROGEN 11 mg/dL (7-21); CALCIUM 8.1 mg/dL (8.4-10.5); CARBON DIOXIDE 27 mmol/L (21-33); CHLORIDE 104 mmol/L (98-107); GFR AFRICAN-AMERICAN > 60; GLUCOSE,RANDOM 93 mg/dL (70-110); POTASSIUM 3.7 mmol/L (3.6-5.0); SODIUM 142 mmol/L (132-148); TOTAL PROTEIN 7.9 g/dL (5.8-8.3)
[2017-04-05] MEDS ORDERED: Iohexol 350 MG/100 ML VIAL ONE (17:58)
[2017-04-05 18:06] LABS: URINE BILIRUBIN NEGATIVE (NEGATIVE); URINE BLOOD LARGE (NEGATIVE); URINE GLUCOSE (UA) NEGATIVE (NEGATIVE); URINE KETONE NEGATIVE (NEGATIVE); URINE LEUKOCYTE ESTERASE SMALL Leu/uL (NEGATIVE); URINE PROTEIN 100 mg/dL (<30 mg/dL); URINE UROBILINOGEN 0.2 E.U./dL (<1 E.U./dL)
[2017-04-05 18:09] LABS: URINE APPEARANCE SL CLOUDY (CLEAR); URINE COLOR YELLOW (YELLOW)
[2017-04-05 18:27] LABS: URINE RBC 15 - 20 /hpf (0-2)
[2017-04-05 18:28] LABS: URINE BACTERIA FEW (NEG)
--- NOTE | 2017-04-05 19:00 | CT ---
PROCEDURE: CT NECK WITH CONTRAST HISTORY: left sided mass sensation Relevant surgical history: Thyroid surgery for thyroid cancer and subsequent right vocal cord paralysis. COMPARISON: 10/10/2015. TECHNIQUE: CT of the neck with intravenous contrast. Coronal and sagittal reformats generated. Intravenous contrast dose: 95 cc Omnipaque 300 Radiation dose: DLP 425.58 mGy-cm This CT exam was performed using one or more of the following dose reduction techniques: Automated exposure control, adjustment of the mA and/or kV according to patient size, and/or use of iterative reconstruction technique. FINDINGS: NASOPHARYNX: Unremarkable. SUPRAHYOID NECK: Mild tonsillar hypertrophy without focal abnormality. INFRAHYOID NECK: Unremarkable vallecular and piriform sinuses. Laryngeal asymmetry on the right consistent with known clinical presentation. MASS: None. GLANDS: Parotid and submandibular glands unremarkable. Normal size thyroid gland, without nodule. LYMPH NODES: Small submandibular lymph nodes on the right are stable. CERVICAL SPINE: No fracture or focal lesion. VASCULAR STRUCTURES: Unremarkable. OTHER FINDINGS: No Known normal thyroid tissue identified suggesting total thyroidectomy. IMPRESSION: No acute findings related to/accounting for the clinical presentation. No significant interval change compared to the prior examination(s). Additional benign and/or incidental findings described above.
[2017-04-05 19:24] VITALS: RESP 16
[2017-04-05 20:18] VITALS: BP 116/73; PULSE 73; O2SAT 98
== END 2017-04-05 20:18 | disposition home or self-care (01) ==
LOC: ED 14:16
DX: R07.0 Pain in throat (principal); E83.51 Hypocalcemia; J38.01 Paralysis of vocal cords and larynx, unilateral; Z85.850 Personal history of malignant neoplasm of thyroid
CPT/HCPCS: 70491; 80053; 81001; 84703; 85025; 87086; 99283; Q9967

== ENCOUNTER 2018-11-16 10:28 | Outpatient (CLI) | payer MEDICAID | END 2018-11-16 10:29 | disposition home or self-care (01) | LOC: RAD 10:28 ==

== ENCOUNTER 2018-12-14 14:11 | Emergency (ER) | payer MEDICAID ==
[2018-12-14 14:19] VITALS: BMI 37.3
[2018-12-14 14:24] VITALS: RESP 18; TEMP 98.2
--- NOTE | 2018-12-14 14:36 | ED PDOC ---
Arrival/HPI - General Chief Complaint: Female Genitourinary Historian: Patient - History of Present Illness Narrative History of Present Illness (Text): 12/14/18 14:35 28 y/o female, no significant pmh, allergic to clindamycin, c/o burning urinary sensation with urgency/frequency suprapubic discomfort x 3 days. Pt. stated that this feels like her usual UTI, eating and drinking well, no nausea or vomiting, no fever or chills, no flank or back pain, no diarrhea, no abdominal pain, no other medical or psychological complaints. Past Medical History - Provider Review Nursing Documentation Reviewed: Yes - Infectious Disease Hx of Infectious Diseases: None - Tetanus Immunization Tetanus Immunization: Unknown - Reproductive Currently : No - Cardiac Hx Cardiac Disorders: No Hx Angina: No Hx Cardiac Arrhythmia: No Hx Circulatory Problems: No Hx Congestive Heart Failure: No Hx Heart Murmur: No Hx Heart Transplant: No Hx Hypertension: No Hx Internal Defibrillator: No Hx Mitral Valve Prolapse: No Hx Pacemaker: No Hx Peripheral Edema: No Hx Peripheral Vascular Disease: No - Pulmonary Hx Respiratory Disorders: No Hx Asthma: No Hx Bronchitis: No Hx Chronic Obstructive Pulmonary Disease (COPD): No Hx Emphysema: No Hx Pneumonia: No Hx Respiratory Aspiration: No Hx Respiratory Tract Infection: No Hx Sleep Apnea: No Hx Tuberculosis: No - Neurological Hx Neurological Disorder: No Other/Comment: "headaches from time to time" - HEENT Hx HEENT Disorder: No Hx Blind: No Hx Cataracts: No Hx Deafness: No Hx Difficulty Chewing: No Hx Epistaxis: No Hx Glaucoma: No Hx Macular Degeneration: No - Renal Hx Renal Disorder: No Hx Dialysis: No Hx Kidney Stones: No Hx Neurogenic Bladder: No Hx Pyelonephritis: No Hx Renal Cancer: No Hx Renal Failure: No - Endocrine/Metabolic Hx Endocrine Disorders: Yes Hx Hyperthyroidism: Yes Hx Hypothyroidism: Yes Other/Comment: thyroid ca. hashimotos thyroidits. hypoparathyroidism - Hematological/Oncological Hx Cancer: Yes (Thyroid cancer) Other/Comment: low calcium - Integumentary Hx Dermatological Disorder: Yes Other/Comment: "hydrytis supertiva" - Musculoskeletal/Rheumatological Hx Musculoskeletal Disorders: No Hx Arthritis: No Hx Back Pain: No Hx Degenerative Joint Disease: No Hx Falls: No Hx Fractures: No Hx Gout: No Hx Herniated Disk: No Hx Myasthenia Gravis: No Hx Osteoarthritis: No Hx Osteomyelitis: No Hx Osteoporosis: No Hx Rhabdomyolysis: No Hx Spinal Stenosis: No Hx Unsteady Gait: No Other/Comment: Hydradenitis Supporativa - Gastrointestinal Hx Gastrointestinal Disorders: Yes Hx Colostomy: No Hx Crohn's Disease: No Hx Diverticulitis: Yes Hx Gall Bladder Disease: No Hx Gastroesophageal Reflux: No Hx Gastrointestinal Ulcer: No Hx Ileostomy: No Hx Liver Failure: No Hx Pancreatitis: No HX Swallowing Problems: No - Genitourinary/Gynecological Hx Genitourinary Disorders: No Hx Hematuria: No Hx Incontinence: No Hx Prostate Problems: No Hx Sexually Transmitted Diseases: No Hx Urinary Tract Infection: No - Psychiatric Hx Anxiety: Yes Hx Bipolar Disorder: No Hx Depression: Yes Hx Emotional Abuse: No Hx Hallucinations: No Hx Panic Disorder: Yes Hx Post Traumatic Stress Disorder: No Hx Psychosis: No Hx Physical Abuse: No Hx Schizophrenia: No Hx Sexual Abuse: No Hx Substance Use: No - Surgical History Hx Amputation: No Hx Appendectomy: No Hx Cardiac Catheterization: No Hx Cholecystectomy: No Hx Coronary Stent: No Hx Gastric Bypass Surgery: No Hx Hysterectomy: No Hx Joint Replacement: No Hx Kidney Transplant: No Hx Liver Transplant: No Hx Mastectomy: No Hx Musculoskeletal Surgery: No Hx Open Heart Surgery: No Hx Orthopedic Surgery: No Hx Splenectomy: No Hx Valve Replacement: No Other/Comment: thyroidectomy ;. vocal cord correction/midialization - Anesthesia Hx Anesthesia: Yes Hx Anesthesia Reactions: No Hx Malignant Hyperthermia: No Family/Social History - Physician Review Nursing Documentation Reviewed: Yes Family/Social History: Unknown Family HX Smoking Status: Never Smoked Hx Alcohol Use: No Hx Substance Use: No Allergies/Home Meds Allergies/Adverse Reactions: Allergies clindamycin Adverse Reaction (Verified 12/14/18 14:18) VOMITING Home Medications: Home Meds Medication Instructions Recorded Confirmed Levothyroxine [Synthroid] 162 mcg PO DAILY 06/19/15 12/14/18 Ergocalciferol (Vitamin D2) 5,000 units PO .WEEKLY 11/06/16 12/14/18 [Vitamin D] clonazePAM [Klonopin] 0.25 mg PO DAILY 11/06/16 12/14/18 Famotidine [Pepcid] 40 mg PO DAILY 12/14/18 12/14/18 Review of Systems - Review of Systems Constitutional: absent: Fatigue, Fevers Eyes: absent: Vision Changes ENT: absent: Hearing Changes Respiratory: absent: SOB, Cough Cardiovascular: absent: Chest Pain Gastrointestinal: absent: Abdominal Pain, Nausea, Vomiting Genitourinary Female: Dysuria, Frequency Musculoskeletal: absent: Arthralgias, Back Pain, Neck Pain Skin: absent: Rash, Pruritis, Skin Lesions Neurological: absent: Headache, Dizziness Psychiatric: absent: Anxiety, Depression, Suicidal Ideation Physical Exam Vital Signs Reviewed: Yes Vital Signs Temp Pulse Resp BP Pulse Ox 12/14/18 14:23 98.2 F 77 18 122/81 97 Temperature: Afebrile Blood Pressure: Normal Pulse: Regular Respiratory Rate: Normal Appearance: Positive for: Well-Appearing, Non-Toxic, Comfortable Pain Distress: Mild Mental Status: Positive for: Alert and Oriented X 3 - Systems Exam Head: Present: Atraumatic, Normocephalic Pupils: Present: PERRL Extroacular Muscles: Present: EOMI Conjunctiva: Present: Normal Mouth: Present: Moist Mucous Membranes Neck: Present: Normal Range of Motion Respiratory/Chest: Present: Clear to Auscultation, Good Air Exchange. No: Respiratory Distress, Accessory Muscle Use Cardiovascular: Present: Regular Rate and Rhythm, Normal S1, S2. No: Murmurs Abdomen: Present: Normal Bowel Sounds. No: Tenderness, Distention, Peritoneal Signs, Rebound, Guarding Back: Present: Normal Inspection. No: CVA Tenderness, Midline Tenderness, Paraspinal Tenderness Upper Extremity: Present: Normal Inspection. No: Cyanosis, Edema Lower Extremity: Present: Normal Inspection. No: Edema Neurological: Present: GCS=15, CN II-XII Intact, Speech Normal, Motor Func Grossly Intact, Gait Normal, Memory Normal Skin: Present: Warm, Dry, Normal Color. No: Rashes Psychiatric: Present: Alert, Oriented x 3, Normal Insight, Normal Concentration Medical Decision Making ED Course and Treatment: 12/14/18 14:41 -ua -observe and reassess 12/14/18 14:58 -Urine hcg is negative -UA show +UTI, rocephine IM ordered -Pt. feels well, stable for outpatient management antibiotic. -Discharge home with macrobid, pyridium, stay hydrated, bed rest, follow up with your own pmd within 2 days, return to the ER for any new or worsening signs or symptoms. - PA / HAMMERER HELPER / Resident Statement MD/DO has reviewed & agrees with the documentation as recorded. Disposition/Present on Arrival - Present on Arrival Any Indicators Present on Arrival: No History of DVT/PE: No History of Uncontrolled Diabetes: No Urinary Catheter: No History of Decub. Ulcer: No History Surgical Site Infection Following: None - Disposition Have Diagnosis and Disposition been Completed?: Yes Diagnosis: UTI (urinary tract infection) Disposition: HOME/ ROUTINE Disposition Time: 14:42 Patient Plan: Discharge Patient Problems: Current Active Problems Problem Status Onset UTI (urinary tract infection) Acute Condition: GOOD Additional Instructions: -Discharge home with macrobid, pyridium, stay hydrated, bed rest, follow up with your own pmd within 2 days, return to the ER for any new or worsening signs or symptoms. Prescriptions: Nitrofurantoin Macrocrystals [Macrobid] 100 mg PO BID #14 cap Phenazopyridine HCl [Pyridium] 200 mg PO TID #6 tablet Forms: [facility] ([place]), WORK NOTE
[2018-12-14 14:43] LABS: PH,URINE 6.5 (4.7-8.0); URINE APPEARANCE SLIGHT-CLOUDY (CLEAR); URINE BILIRUBIN NEGATIVE (NEGATIVE); URINE BLOOD MODERATE (NEGATIVE); URINE COLOR YELLOW (YELLOW); URINE GLUCOSE (UA) NEGATIVE (NEGATIVE); URINE LEUKOCYTE ESTERASE MODERATE Leu/uL (NEGATIVE); URINE PROTEIN NEGATIVE mg/dL (<30 mg/dL); URINE UROBILINOGEN 0.2 E.U./dL (<1 E.U./dL)
[2018-12-14 14:51] LABS: URINE BACTERIA MANY /hpf; URINE RBC 25 - 30 /hpf (0-2); URINE WBC 25 - 30 /hpf (0-6)
[2018-12-14 15:23] VITALS: BP 125/79; PULSE 78; O2SAT 99
== END 2018-12-14 15:23 | disposition home or self-care (01) ==
LOC: ED 14:11
DX: N39.0 Urinary tract infection, site not specified (principal)
CPT/HCPCS: 81001; 81025; 87086; 87181; 96372; 99283; J1885

== ENCOUNTER 2018-12-20 09:31 | Outpatient (CLI) | payer MEDICAID | END 2018-12-20 09:32 | disposition home or self-care (01) | LOC: RAD 09:31 ==

== ENCOUNTER 2018-12-30 15:17 | Emergency (ER) | payer MEDICAID ==
[2018-12-30 15:18] VITALS: BMI 37.3
[2018-12-30 15:30] VITALS: RESP 18; TEMP 98.9
--- NOTE | 2018-12-30 15:46 | ED PDOC ---
Arrival/HPI - General Chief Complaint: Female Genitourinary Time Seen by Provider: 12/30/18 15:23 Historian: Patient - History of Present Illness Narrative History of Present Illness (Text): 12/30/18 15:45 A 28 year old female, whose past medical history includes thyroiditis, hypocalcemia, and migraines with aura, presents to the emergency department complaining of possible UTI vs. yeast infection since yesterday. Patient reports she was seen in the ER 2 weeks ago for a UTI and has been taking antibiotics, macrobid and amoxicillin, and notes she recently finished the amoxicillin course of treatment. 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 Patient notes experiencing an urgency to urinate and slight dysuria since yesterday. Patient denies any fever or any other complain ts. PMD: Dr. Caal Time/Duration: Other (yesterday) Symptom Onset: Gradual Symptom Course: Unchanged Activities at Onset: Light Context: Home Past Medical History - Provider Review Nursing Documentation Reviewed: Yes - Infectious Disease Hx of Infectious Diseases: None - Tetanus Immunization Tetanus Immunization: Unknown - Reproductive Menopause: No - Cardiac Hx Cardiac Disorders: No Hx Angina: No Hx Cardiac Arrhythmia: No Hx Circulatory Problems: No Hx Congestive Heart Failure: No Hx Heart Murmur: No Hx Heart Transplant: No Hx Hypertension: No Hx Internal Defibrillator: No Hx Mitral Valve Prolapse: No Hx Pacemaker: No Hx Peripheral Edema: No Hx Peripheral Vascular Disease: No - Pulmonary Hx Respiratory Disorders: No Hx Asthma: No Hx Bronchitis: No Hx Chronic Obstructive Pulmonary Disease (COPD): No Hx Emphysema: No Hx Pneumonia: No Hx Respiratory Aspiration: No Hx Respiratory Tract Infection: No Hx Sleep Apnea: No Hx Tuberculosis: No - Neurological Hx Neurological Disorder: No Other/Comment: "headaches from time to time" - HEENT Hx HEENT Disorder: No Hx Blind: No Hx Cataracts: No Hx Deafness: No Hx Difficulty Chewing: No Hx Epistaxis: No Hx Glaucoma: No Hx Macular Degeneration: No - Renal Hx Renal Disorder: No Hx Dialysis: No Hx Kidney Stones: No Hx Neurogenic Bladder: No Hx Pyelonephritis: No Hx Renal Cancer: No Hx Renal Failure: No - Endocrine/Metabolic Hx Endocrine Disorders: Yes Hx Hyperthyroidism: Yes Hx Hypothyroidism: Yes Other/Comment: thyroid ca. hashimotos thyroidits. hypoparathyroidism - Hematological/Oncological Hx Cancer: Yes (Thyroid cancer) Other/Comment: low calcium - Integumentary Hx Dermatological Disorder: Yes Other/Comment: "hydrytis supertiva" - Musculoskeletal/Rheumatological Hx Musculoskeletal Disorders: No Hx Arthritis: No Hx Back Pain: No Hx Degenerative Joint Disease: No Hx Falls: No Hx Fractures: No Hx Gout: No Hx Herniated Disk: No Hx Myasthenia Gravis: No Hx Osteoarthritis: No Hx Osteomyelitis: No Hx Osteoporosis: No Hx Rhabdomyolysis: No Hx Spinal Stenosis: No Hx Unsteady Gait: No Other/Comment: Hydradenitis Supporativa - Gastrointestinal Hx Gastrointestinal Disorders: Yes Hx Colostomy: No Hx Crohn's Disease: No Hx Diverticulitis: Yes Hx Gall Bladder Disease: No Hx Gastroesophageal Reflux: No Hx Gastrointestinal Ulcer: No Hx Ileostomy: No Hx Liver Failure: No Hx Pancreatitis: No HX Swallowing Problems: No - Genitourinary/Gynecological Hx Genitourinary Disorders: No Hx Hematuria: No Hx Incontinence: No Hx Prostate Problems: No Hx Sexually Transmitted Diseases: No Hx Urinary Tract Infection: No - Psychiatric Hx Anxiety: Yes Hx Bipolar Disorder: No Hx Depression: Yes Hx Emotional Abuse: No Hx Hallucinations: No Hx Panic Disorder: Yes Hx Post Traumatic Stress Disorder: No Hx Psychosis: No Hx Physical Abuse: No Hx Schizophrenia: No Hx Sexual Abuse: No Hx Substance Use: No - Surgical History Hx Amputation: No Hx Appendectomy: No Hx Cardiac Catheterization: No Hx Cholecystectomy: No Hx Coronary Stent: No Hx Gastric Bypass Surgery: No Hx Hysterectomy: No Hx Joint Replacement: No Hx Kidney Transplant: No Hx Liver Transplant: No Hx Mastectomy: No Hx Musculoskeletal Surgery: No Hx Open Heart Surgery: No Hx Orthopedic Surgery: No Hx Splenectomy: No Hx Valve Replacement: No Other/Comment: thyroidectomy ;. vocal cord correction/midialization - Anesthesia Hx Anesthesia: Yes Hx Anesthesia Reactions: No Hx Malignant Hyperthermia: No Family/Social History - Physician Review Nursing Documentation Reviewed: Yes Family/Social History: No Known Family HX Smoking Status: Never Smoked Hx Alcohol Use: No Hx Substance Use: No Allergies/Home Meds Allergies/Adverse Reactions: Allergies clindamycin Adverse Reaction (Verified 12/14/18 14:18) VOMITING Home Medications: Home Meds Medication Instructions Recorded Confirmed Levothyroxine [Synthroid] 162 mcg PO DAILY 06/19/15 12/14/18 Ergocalciferol (Vitamin D2) 5,000 units PO .WEEKLY 11/06/16 12/14/18 [Vitamin D] clonazePAM [Klonopin] 0.25 mg PO DAILY 11/06/16 12/14/18 Famotidine [Pepcid] 40 mg PO DAILY 12/14/18 12/14/18 Review of Systems - Physician Review All systems were reviewed & negative as marked: Yes - Review of Systems Constitutional: absent: Fevers Genitourinary Female: Dysuria, Frequency (increased urgency) Physical Exam Vital Signs Reviewed: Yes Vital Signs Temp Pulse Resp BP Pulse Ox 12/30/18 15:25 98.9 F 84 18 123/81 99 Temperature: Afebrile Blood Pressure: Normal Pulse: Regular Respiratory Rate: Normal Appearance: Positive for: Well-Appearing, Non-Toxic, Comfortable Pain Distress: None Mental Status: Positive for: Alert and Oriented X 3 - Systems Exam Head: Present: Atraumatic, Normocephalic Pupils: Present: PERRL Extroacular Muscles: Present: EOMI Conjunctiva: Present: Normal Respiratory/Chest: Present: Clear to Auscultation, Good Air Exchange. No: Respiratory Distress, Accessory Muscle Use Cardiovascular: Present: Regular Rate and Rhythm, Normal S1, S2. No: Murmurs Abdomen: No: Tenderness, Distention, Peritoneal Signs Upper Extremity: Present: Normal Inspection. No: Cyanosis, Edema Lower Extremity: Present: Normal Inspection. No: Edema Neurological: Present: GCS=15, CN II-XII Intact, Speech Normal Skin: Present: Warm, Dry, Normal Color. No: Rashes Psychiatric: Present: Alert, Oriented x 3, Normal Insight, Normal Concentration Medical Decision Making ED Course and Treatment: 12/30/18 15:45 Impression: 28 year old female presenting to the emergency complaining of possible UTI vs. yeast infection. Plan: -- Urine culture -- Urinalysis -- Reassess and disposition Prior Visits: Notes and results from previous visits were reviewed. Progress Notes: 12/30/18 17:26 patient presents with dysuria, no fever, no flank pain. will tx for uti and yeast infection. 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 patient informed to call the ED if the pharmacist states there is a mismatch in diagnosis and treatment. - Scribe Statement The provider has reviewed the documentation as recorded by the Junior Jacob All medical record entries made by the Scribe were at my direction and personally dictated by me. I have reviewed the chart and agree that the record accurately reflects my personal performance of the history, physical exam, medical decision making, and the department course for this patient. I have also personally directed, reviewed, and agree with the discharge instructions and disposition. Disposition/Present on Arrival - Present on Arrival Any Indicators Present on Arrival: No History of DVT/PE: No History of Uncontrolled Diabetes: No Urinary Catheter: No History of Decub. Ulcer: No History Surgical Site Infection Following: None - Disposition Have Diagnosis and Disposition been Completed?: Yes Diagnosis: UTI (urinary tract infection), Khushi infection of genital region Disposition: HOME/ ROUTINE Disposition Time: 17:28 Patient Plan: Discharge Patient Problems: Current Active Problems Problem Status Onset Khushi infection of genital region Acute UTI (urinary tract infection) Acute Condition: STABLE Discharge Instructions (ExitCare): Urinary Tract Infections in Adults, Yeast Infection (DC) Additional Instructions: return for any new or worsening symptoms. Prescriptions: Nitrofurantoin Monohyd/M-Cryst [Macrobid 100 mg Capsule] 100 mg PO BID 10 Days #20 capsule Phenazopyridine HCl [Pyridium] 100 mg PO TID 2 Days #6 tablet Referrals: Rah Caal MD [Primary Care Provider] - Follow up with primary Forms: [employer] (Micronesian)
[2018-12-30 16:40] LABS: PH,URINE 5.5 (4.7-8.0); URINE BILIRUBIN NEGATIVE (NEGATIVE); URINE BLOOD NEGATIVE (NEGATIVE); URINE GLUCOSE (UA) 100 mg/dL (NEGATIVE); URINE LEUKOCYTE ESTERASE TRACE Leu/uL (NEGATIVE); URINE PROTEIN 100 mg/dL (<30 mg/dL); URINE UROBILINOGEN >=8.0 E.U./dL (<1 E.U./dL)
[2018-12-30 16:41] LABS: URINE APPEARANCE SL CLOUDY (CLEAR); URINE COLOR LIGHT ORANGE (YELLOW)
[2018-12-30 17:57] VITALS: BP 114/71; PULSE 76; O2SAT 100
== END 2018-12-30 17:59 | disposition home or self-care (01) ==
LOC: ED 15:17
DX: B37.49 Other urogenital candidiasis (principal)

== ENCOUNTER 2019-03-28 13:46 | Emergency (ER) | payer MEDICAID ==
[2019-03-28 14:18] VITALS: TEMP 98.6; BMI 37.5
[2019-03-28 16:29] LABS: URINE BILIRUBIN NEGATIVE (NEGATIVE); URINE BLOOD LARGE (NEGATIVE); URINE GLUCOSE (UA) 100 mg/dL (NEGATIVE); URINE LEUKOCYTE ESTERASE LARGE Leu/uL (NEGATIVE); URINE PROTEIN 100 mg/dL (<30 mg/dL)
[2019-03-28 16:32] LABS: URINE APPEARANCE CLOUDY (CLEAR); URINE COLOR LIGHT ORANGE (YELLOW)
[2019-03-28 16:56] LABS: URINE BACTERIA FEW /hpf; URINE EPITHELIAL CELLS MANY /hpf (0-5); URINE WBC TNTC /hpf (0-6)
[2019-03-28 17:00] VITALS: RESP 17
[2019-03-28] MEDS ORDERED: Tmp-Smz 800 mg-160 mg DS Tab PO STA (17:18)
--- NOTE | 2019-03-28 17:28 | ED PDOC ---
Arrival/HPI - General Chief Complaint: Female Genitourinary Time Seen by Provider: 03/28/19 15:34 Historian: Patient - History of Present Illness Narrative History of Present Illness (Text): 03/28/19 17:24 28-year-old female with a history of recurrent urine 2-day history of dysuria urinary frequency and urgency. Patient states symptoms are similar to when she is urinary tract infections in the past. She denies back pain. No abdominal pain. No nausea vomiting diarrhea constipation. No chest pain or shortness of breath. No vaginal bleeding. Patient states she is currently menstruating. Patient states she has been getting antibiotics by her primary care physician. Patient states she was seen twice in the emergency room and was put on Macrobid. Patient states after taking Macrobid she developed a sudden headache so she considers that an allergy to Macrobid. Patient states she was then placed on amoxicillin but did not complete the dosing because she missed the pill. Patient states her primary care physician at one point in time put her on Bactrim which resolved all of her symptoms. Past Medical History - Provider Review Nursing Documentation Reviewed: Yes Primary Care Provider: Rah Caal - Travel History Have you recently traveled outside [place] w/in the past 3 mons?: No - Infectious Disease Hx of Infectious Diseases: None - Tetanus Immunization Tetanus Immunization: Unknown - Cardiac Hx Cardiac Disorders: No Hx Angina: No Hx Cardiac Arrhythmia: No Hx Circulatory Problems: No Hx Congestive Heart Failure: No Hx Heart Murmur: No Hx Heart Transplant: No Hx Hypertension: No Hx Internal Defibrillator: No Hx Mitral Valve Prolapse: No Hx Pacemaker: No Hx Peripheral Edema: No Hx Peripheral Vascular Disease: No - Pulmonary Hx Respiratory Disorders: No Hx Asthma: No Hx Bronchitis: No Hx Chronic Obstructive Pulmonary Disease (COPD): No Hx Emphysema: No Hx Pneumonia: No Hx Respiratory Aspiration: No Hx Respiratory Tract Infection: No Hx Sleep Apnea: No Hx Tuberculosis: No - Neurological Hx Neurological Disorder: No Other/Comment: "headaches from time to time" - HEENT Hx HEENT Disorder: No Hx Blind: No Hx Cataracts: No Hx Deafness: No Hx Difficulty Chewing: No Hx Epistaxis: No Hx Glaucoma: No Hx Macular Degeneration: No - Renal Hx Renal Disorder: No Hx Dialysis: No Hx Kidney Stones: No Hx Neurogenic Bladder: No Hx Pyelonephritis: No Hx Renal Cancer: No Hx Renal Failure: No - Endocrine/Metabolic Hx Endocrine Disorders: Yes Hx Hyperthyroidism: Yes Hx Hypothyroidism: Yes Other/Comment: thyroid ca. hashimotos thyroidits. hypoparathyroidism - Hematological/Oncological Hx Cancer: Yes (Thyroid cancer) Other/Comment: low calcium - Integumentary Hx Dermatological Disorder: Yes Other/Comment: "hydrytis supertiva" - Musculoskeletal/Rheumatological Hx Musculoskeletal Disorders: No Hx Arthritis: No Hx Back Pain: No Hx Degenerative Joint Disease: No Hx Falls: No Hx Fractures: No Hx Gout: No Hx Herniated Disk: No Hx Myasthenia Gravis: No Hx Osteoarthritis: No Hx Osteomyelitis: No Hx Osteoporosis: No Hx Rhabdomyolysis: No Hx Spinal Stenosis: No Hx Unsteady Gait: No Other/Comment: Hydradenitis Supporativa - Gastrointestinal Hx Gastrointestinal Disorders: Yes Hx Colostomy: No Hx Crohn's Disease: No Hx Diverticulitis: Yes Hx Gall Bladder Disease: No Hx Gastroesophageal Reflux: No Hx Gastrointestinal Ulcer: No Hx Ileostomy: No Hx Liver Failure: No Hx Pancreatitis: No HX Swallowing Problems: No - Genitourinary/Gynecological Hx Genitourinary Disorders: No Hx Hematuria: No Hx Incontinence: No Hx Prostate Problems: No Hx Sexually Transmitted Diseases: No Hx Urinary Tract Infection: No - Psychiatric Hx Anxiety: Yes Hx Bipolar Disorder: No Hx Depression: Yes Hx Emotional Abuse: No Hx Hallucinations: No Hx Panic Disorder: Yes Hx Post Traumatic Stress Disorder: No Hx Psychosis: No Hx Physical Abuse: No Hx Schizophrenia: No Hx Sexual Abuse: No Hx Substance Use: No - Surgical History Hx Amputation: No Hx Appendectomy: No Hx Cardiac Catheterization: No Hx Cholecystectomy: No Hx Coronary Stent: No Hx Gastric Bypass Surgery: No Hx Hysterectomy: No Hx Joint Replacement: No Hx Kidney Transplant: No Hx Liver Transplant: No Hx Mastectomy: No Hx Musculoskeletal Surgery: No Hx Open Heart Surgery: No Hx Orthopedic Surgery: No Hx Splenectomy: No Hx Valve Replacement: No Other/Comment: thyroidectomy ;. vocal cord correction/midialization - Anesthesia Hx Anesthesia: Yes Hx Anesthesia Reactions: No Hx Malignant Hyperthermia: No Family/Social History - Physician Review Nursing Documentation Reviewed: Yes Family/Social History: Unknown Family HX Smoking Status: Never Smoked Hx Alcohol Use: No Hx Substance Use: No Allergies/Home Meds Allergies/Adverse Reactions: Allergies clindamycin Adverse Reaction (Verified 12/14/18 14:18) VOMITING Home Medications: Home Meds Medication Instructions Recorded Confirmed Levothyroxine [Synthroid] 162 mcg PO DAILY 06/19/15 12/14/18 Ergocalciferol (Vitamin D2) 5,000 units PO .WEEKLY 11/06/16 12/14/18 [Vitamin D] clonazePAM [Klonopin] 0.25 mg PO DAILY 11/06/16 12/14/18 Famotidine [Pepcid] 40 mg PO DAILY 12/14/18 12/14/18 Review of Systems - Review of Systems Constitutional: absent: Fatigue, Fevers Respiratory: absent: SOB, Cough Cardiovascular: absent: Chest Pain, Palpitations Gastrointestinal: absent: Abdominal Pain, Constipation, Diarrhea, Nausea, Vomiting Genitourinary Female: Dysuria, Frequency, Hematuria Musculoskeletal: absent: Arthralgias, Back Pain, Neck Pain Skin: absent: Rash, Pruritis Neurological: absent: Headache, Dizziness Psychiatric: absent: Anxiety, Depression, Suicidal Ideation Physical Exam Vital Signs Reviewed: Yes Vital Signs Temp Pulse Resp BP Pulse Ox 03/28/19 16:58 60 17 102/74 99 03/28/19 14:14 98.6 F 71 18 115/79 98 Temperature: Afebrile Blood Pressure: Normal Pulse: Regular Respiratory Rate: Normal Appearance: Positive for: Well-Appearing, Non-Toxic, Comfortable Pain Distress: None Mental Status: Positive for: Alert and Oriented X 3 - Systems Exam Head: Present: Atraumatic Mouth: Present: Moist Mucous Membranes Neck: Present: Normal Range of Motion Respiratory/Chest: Present: Clear to Auscultation, Good Air Exchange. No: Respiratory Distress, Accessory Muscle Use Cardiovascular: Present: Regular Rate and Rhythm, Normal S1, S2. No: Murmurs Abdomen: No: Tenderness Back: Present: Normal Inspection. No: CVA Tenderness Neurological: Present: GCS=15, Speech Normal Skin: Present: Warm, Dry, Normal Color. No: Rashes Psychiatric: Present: Alert, Oriented x 3 Medical Decision Making ED Course and Treatment: 03/28/19 17:26 Patient is nontoxic well-appearing in no distress with stable vital signs bactrim PO given Urinalysis: + leukocytes, + wbcs, Urine culture: pending advised follow up with the primary care physician within the next 2 days. advised immediate return if symptoms worsen,persist or if new symptoms develop. Patient was advised that she should follow-up with the urologist for recurrent UTIs. Patient verbalizes understanding of discharge instructions and need for immediate followup. All aspects of this case were discussed the attending of record. Impression: Urinary tract infection motrin every 6 hours as needed for pain Bactrim DS one tablet twice daily x7 days Pyridium one tablet twice daily x3 days Followup with primary care physician within the next 2 days Follow up with the urologist for the next 2 days Return if symptoms worsen persist or if new symptoms develop - Lab Interpretations Lab Results: Urine Color Light orange (YELLOW) 03/28/19 16:13 Urine Appearance Cloudy (CLEAR) 03/28/19 16:13 Urine pH 6.0 (4.7-8.0) 03/28/19 16:13 Ur Specific [place] 1.010 (1.005-1.035) 03/28/19 16:13 Urine Protein 100 mg/dL (<30 mg/dL) H 03/28/19 16:13 Urine Glucose (UA) 100 mg/dL (NEGATIVE) H 03/28/19 16:13 Urine Ketones Negative mg/dL (NEGATIVE) 03/28/19 16:13 Urine Blood Large (NEGATIVE) H 03/28/19 16:13 Urine Nitrate Positive (NEGATIVE) H 03/28/19 16:13 Urine Bilirubin Negative (NEGATIVE) 03/28/19 16:13 Urine Urobilinogen 4.0 E.U./dL (<1 E.U./dL) H 03/28/19 16:13 Ur Leukocyte Esterase Large Patt/uL (NEGATIVE) H 03/28/19 16:13 Urine RBC 2 - 5 /hpf (0-2) H 03/28/19 16:13 Urine WBC Tntc /hpf (0-6) H 03/28/19 16:13 Ur Epithelial Cells Many /hpf (0-5) H 03/28/19 16:13 Urine Bacteria Few /hpf (NONE) 03/28/19 16:13 - Medication Orders Current Medication Orders: Discontinued Medications Trimethoprim/Sulfamethoxazole (Bactrim Ds Tab) 1 tab PO STAT STA; Protocol Stop: 03/28/19 17:19 Disposition/Present on Arrival - Present on Arrival Any Indicators Present on Arrival: No History of DVT/PE: No History of Uncontrolled Diabetes: No Urinary Catheter: No History of Decub. Ulcer: No History Surgical Site Infection Following: None - Disposition Have Diagnosis and Disposition been Completed?: Yes Diagnosis: Urinary tract infection Disposition: HOME/ ROUTINE Disposition Time: 17:26 Patient Plan: Discharge Condition: GOOD Discharge Instructions (ExitCare): Urinary Tract Infections in Adults Additional Instructions: motrin every 6 hours as needed for pain Bactrim DS one tablet twice daily x7 days Pyridium one tablet twice daily x3 days Followup with primary care physician within the next 2 days Follow up with the urologist for the next 2 days Return if symptoms worsen persist or if new symptoms develop Prescriptions: Phenazopyridine [Phenazopyridine HCl] 200 mg PO BID #6 tab Sulfamethoxazole/Trimethoprim [Bactrim DS 800 mg-160 mg] 1 tab PO BID #14 tab Referrals: Rah Caal MD [Family Provider] - Follow up with primary Tomi Johnson MD [Staff Provider] - Follow up with primary Forms: [facility] (Congolese), WORK NOTE
[2019-03-28 17:59] VITALS: BP 110/79; PULSE 68; O2SAT 100
== END 2019-03-28 18:02 | disposition home or self-care (01) ==
LOC: ED 13:46
DX: N39.0 Urinary tract infection, site not specified (principal)